=== PATIENT | male | born 2000 | race Hispanic/Latino ===

== ENCOUNTER 2023-03-16 15:30 | Outpatient (CLI) | payer OTHER | END 2023-03-16 15:31 | disposition home or self-care (01) | LOC: ULT 15:30 | PROVIDERS: ATTEND Family Medicine | DX: S80.01XA Contusion of right knee, initial encounter (principal); M25.561 Pain in right knee; R93.7 Abnormal findings on diagnostic imaging of other parts of musculoskeletal system | CPT/HCPCS: 76882 ==